=== PATIENT | male | born 1970 | race Caucasian/White ===

== ENCOUNTER 2017-02-02 08:30 | Emergency (ER) | payer SELFPAY ==
[2017-02-02] MEDS ORDERED: Ondansetron HCl/PF 4 MG/2 ML Vial ONE (08:37)
[2017-02-02 09:04] LABS: #Basophils 0.1 thou/uL (0.0-0.2); #Eosinphils 0.2 thou/uL (0.0-0.7); #Lymphocytes 2.3 thou/uL (1.20-3.40); #Monocytes 0.8 thou/uL (0.11-0.59); #Neutrophils 8.1 thou/uL (1.40-6.50); %Basophils 0.5 % (0.0-1.0); %Eosinophils 1.4 % (0.0-10.0); %Lymphocytes 19.9 % (21.0-51.0); %Monocytes 6.8 % (0.0-10.0); Hematocrit 41.6 % (42.0-52.0); Mean Platelet Volume 7.5 fL (7.4-10.4); Red Blood Cell (RBC) Count 4.18 mill/uL (4.70-6.10); White Blood Cell (WBC) Count 11.3 thou/uL (4.8-10.8)
[2017-02-02 09:26] LABS: ALT (SGPT) 18 U/L (8-55); AST (SGOT) 20 U/L (5-34); Alkaline Phosphatase 64 U/L (40-150); Anion Gap 14 mmol/L (10-20); BUN (Urea Nitrogen) 12 mg/dL (8.9-20.6); Bilirubin, Total 0.5 mg/dL (0.2-1.2); Calc. Creatinine Clearance 0 mL/min (70-130); Carbon Dioxide 24 mmol/L (22-29); Chloride 103 mmol/L (98-107); Estimated GFR-MDRD Greater than 90; Globulin 2.7 g/dL (2.4-3.5); Protein, Total 6.8 g/dL (6.0-8.3)
[2017-02-02] MEDS ORDERED: Potassium Chloride 20 MEQ TAB ONE (10:54)
== END 2017-02-02 10:57 | disposition home or self-care (01) ==
LOC: ERS 08:30
DX: E10.649 Type 1 diabetes mellitus with hypoglycemia without coma (principal); F17.210 Nicotine dependence, cigarettes, uncomplicated; Z79.899 Other long term (current) drug therapy
CPT/HCPCS: 36415; 36416; 80053; 85025; 93005; 96374; J2405

== ENCOUNTER 2018-01-08 15:55 | Emergency (ER) | payer SELFPAY ==
[2018-01-08] MEDS ORDERED: diphenhydrAMINE 50 MG/ML VIAL ONE (17:12)
== END 2018-01-08 17:51 | disposition home or self-care (01) ==
LOC: ERS 15:55
DX: T63.441A Toxic effect of venom of bees, accidental (unintentional), initial encounter (principal); F17.210 Nicotine dependence, cigarettes, uncomplicated; E10.9 Type 1 diabetes mellitus without complications; Z79.899 Other long term (current) drug therapy
CPT/HCPCS: 96374; J1200

== ENCOUNTER 2018-05-31 09:08 | Inpatient (IN) | payer SELFPAY ==
[2018-05-31 09:41] LABS: #Eosinphils 0.1 thou/uL (0.0-0.7); #Lymphocytes 0.9 thou/uL (1.20-3.40); #Monocytes 0.3 thou/uL (0.11-0.59); #Neutrophils 5.4 thou/uL (1.40-6.50); %Basophils 0.5 % (0.0-1.0); %Eosinophils 1.3 % (0.0-10.0); %Lymphocytes 13.9 % (21.0-51.0); %Monocytes 4.5 % (0.0-10.0); %Neutrophils 79.8 % (42.0-75.0); Hemoglobin 14.1 g/dL (14.0-18.0); Mean Corpuscular HGB CONC 32.1 g/dL (32.0-36.0); Mean Corpuscular Hemoglobin 32.9 pg (27.0-31.0); Mean Platelet Volume 8.4 fL (7.4-10.4); Platelet Count 131 thou/uL (130-400); RBC Distribution Width 12.9 % (11.5-14.5); Red Blood Cell (RBC) Count 4.29 mill/uL (4.70-6.10); White Blood Cell (WBC) Count 6.7 thou/uL (4.8-10.8)
[2018-05-31 09:47] LABS: Base Excess-Venous -7.7 mmol/L (-2.0 to 3.0); Bicarbonate (HCO3v) 18.1 mmol/L (22.0-28.0); CO2 Tension (PvCO2) 37.3 mmHg (40.0-50.0); Calcium, Ionized 1.04 mmol/L (See Comments:); Chloride 102 mmol/L (98-107); O2 Tension (PvO2) 36.3 mmHg (35.0-45.0); Potassium 5.7 mmol/L (3.5-5.1); Sodium 132 mmol/L (138-145); T. Carbon Dioxide 19.2 mmol/L (22.0-28.0); pH (Venous) 7.294 (7.320-7.430); vO2 Saturation-calc 63.6 % (60.0-85.0)
--- NOTE | 2018-05-31 09:55 | RAD ---
CHEST 1 VIEW: Date: 05/31/18 HISTORY: Chest pain. COMPARISON: Chest radiograph from 2013. FINDINGS: Lungs are clear. No pneumothorax or effusion. Cardiac silhouette and mediastinal contours within norm al limits. No acute osseous abnormality. There is a dysmorphic appearance to the left humeral head with evidence for fracture and articular fernandez rface remodeling. There is also flattening of the right humeral head. IMPRESSION: No acute intrathoracic abnormality. POS: JEWEL
[2018-05-31 10:06] LABS: ALT (SGPT) 33 U/L (8-55); AST (SGOT) 31 U/L (5-34); Alkaline Phosphatase 92 U/L (40-150); Anion Gap 19 mmol/L (10-20); BUN (Urea Nitrogen) 22 mg/dL (8.9-20.6); Bilirubin, Total 1.4 mg/dL (0.2-1.2); Calc. Creatinine Clearance 0 mL/min (70-130); Calcium 8.9 mg/dL (7.8-10.44); Carbon Dioxide 18 mmol/L (22-29); Chloride 100 mmol/L (98-107); Estimated GFR-MDRD 64; Globulin 2.5 g/dL (2.4-3.5); Magnesium 1.4 mg/dL (1.6-2.6); Phosphorus 2.7 mg/dL (2.3-4.7); Potassium 5.8 mmol/L (3.5-5.1); Protein, Total 6.5 g/dL (6.0-8.3); Sodium 131 mmol/L (136-145)
[2018-05-31 10:08] LABS: Glucose 589 mg/dL (70-105)
[2018-05-31 10:12] LABS: Bilirubin Negative (Negative); Blood, Urine Negative (Negative); Clarity CLEAR (Clear); Glucose, Urine (Dipstick) >=1000 mg/dL (Negative); Leukocyte Negative (Negative); Nitrite Negative (Negative); Protein, Urine (Dipstick) Negative (Neg-Trace); Specific Gravity, Urine 1.029 (1.002-1.036); Urobilinogen 0.2 mg/dL (0.2-1.0); pH, Urine 5.5 (5.0-9.0)
[2018-05-31] MEDS ORDERED: Insulin Regular 300 UNITS/3 ML VIAL ONE (10:33)
[2018-05-31] MEDS ORDERED: Magnesium 2 GM/50 ML BAG (IN WATER) ONE (10:33)
[2018-05-31] MEDS ORDERED: HumuLIN 70/30 (300 UNITS/3 ML VIAL) SC SCH (11:15)
[2018-05-31] MEDS ORDERED: Aspirin Chewable 81 MG TAB ONE (11:17)
[2018-05-31 12:06] LABS: Anion Gap 16 mmol/L (10-20); BUN (Urea Nitrogen) 21 mg/dL (8.9-20.6); Calc. Creatinine Clearance 77 mL/min (70-130); Calcium 8.2 mg/dL (7.8-10.44); Carbon Dioxide 16 mmol/L (22-29); Chloride 105 mmol/L (98-107); Estimated GFR-MDRD 77; Glucose 424 mg/dL (70-105); Potassium 4.9 mmol/L (3.5-5.1); Sodium 132 mmol/L (136-145)
[2018-05-31] MEDS ORDERED: HumaLOG 300 UNITS/3 ML VIAL SC PRN ×2 (12:59)
[2018-05-31] MEDS ORDERED: Guaifenesin DM 100-10/5 ML UDCUP PO PRN (12:59)
[2018-05-31] MEDS ORDERED: Dextrose 50% Abboject 50 ML SYRINGE SLOW IVP PRN (12:59)
[2018-05-31] MEDS ORDERED: Acetaminophen 325 MG TAB PO PRN (12:59)
[2018-05-31] MEDS ORDERED: HYDROcodone/Acetaminophen 5/325 mg Tablet PO PRN (12:59)
[2018-05-31] MEDS ORDERED: Dextrose 5% in Water 1,000 ML IV PRN (12:59)
[2018-05-31] MEDS ORDERED: Senokot S 8.6-50 MG TAB PO PRN (12:59)
[2018-05-31 13:26] LABS: Hemoglobin A1c 8.8 % (4.0-6.0)
[2018-05-31 13:44] VITALS: BMI 19.9
[2018-05-31] MEDS: Sodium Chloride 0.9% 1,000 ML IV SCH (14:52)
--- NOTE | 2018-05-31 15:57 | HP ---
REASON FOR ADMISSION: Metabolic acidosis, diabetes mellitus type 1 with severe hyperglycemia. HISTORY OF PRESENTING ILLNESS: The patient gives history of running out of his insulin last night. He checked his fingerstick glucose. It was more than 500. He tried to call his primary care physician this morning. He has ran out of all his refills as well. He did not hear back from his primary care physician and the patient made it to the emergency room. No complaints of chest pain, palpitation , PND, or orthopnea. No complaints of urinary frequency or urgency. No complaints of cough or expectoration. No complaints of myalgias or flu-like illness at present. PAST MEDICAL AND SURGICAL HISTORY: History of diabetes mellitus type 1, which was diagnosed in February 2008; hernia repair. CURRENT MEDICATIONS: Takes: 1. Levemir anywhere from 15 to 20 units subcutaneous q.p.m. 2. NovoLog sliding scale three times daily before meals. 3. Cyclobenzaprine 5 mg q.8 hourly p.r.n. for muscle spasms. 4. Lisinopril 10 mg p.o. daily. ALLERGIES: NO KNOWN DRUG ALLERGIES. PERSONAL HISTORY: Does not abuse alcohol or drugs. Smokes half pack a day. Ambulates by himself. 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 FAMILY HISTORY: Mother was killed in her 40s. Father of massive CO at the age of 51 years. CODE STATUS: Full. Power of commercial real estate attorney is his son. REVIEW OF SYSTEMS: CONSTITUTIONAL: Negative for weight loss or gain, ability to conduct usual activities. SKIN: Negative for rash, itching. EYES: Negative for double vision, pain. ENT/MOUTH: Negative for nose bleeding, neck stiffness, pain, tenderness. CARDIOVASCULAR: Negative for palpitations, dyspnea on exertion, orthopnea. RESPIRATORY: Negative for shortness of breath, wheezing, cough, hemoptysis, fever or night sweats. GASTROINTESTINAL: Negative for poor appetite, abdominal pain, heartburn, nausea , vomiting, constipation, or diarrhea. GENITOURINARY: Negative for urgency, frequency, dysuria, nocturia. MUSCULOSKELETAL: Negative for pain, swelling. NEUROLOGIC/PSYCHIATRIC: Negative for anxiety, depression. ALLERGY/IMMUNOLOGIC: Negative for skin rash, bleeding tendency. PHYSICAL EXAMINATION: GENERAL: The patient is a 47-year-old male, who is currently not in any acute distress. VITAL SIGNS: Blood pressure 108/56, pulse 108 per minute, respiratory rate 16 per minute, temperature 98.1 degrees Fahrenheit, and saturating 98% on room air. NECK: Supple. No elevated JVD. HEENT: Eyes; extraocular muscles intact. Pupils are reacting to light. Oral cavity, mucous membranes are dry. No exudates or congestion. CARDIOVASCULAR: S1 and S2 heard. Regular rhythm. Tachycardic. RESPIRATORY: Air entry 1+ bilateral. No rales or rhonchi. ABDOMEN: Soft. Bowel sounds heard. No tenderness, rigidity, or guarding. EXTREMITIES: No peripheral edema or calf tenderness. VASCULAR: Peripheral pulses 1+ bilateral. No ischemic ulcerations or gangrene. CENTRAL NERVOUS SYSTEM: No gross focal deficits noted. The patient is alert, awake, and oriented well. PSYCHIATRIC: The patient's mood is euthymic. No hallucinations or delusions. LABORATORY DATA: White count of 6, H and H of 14 and 43, platelet count 131, MCV is 102 with 79% neutrophils. Venous blood gas done shows a pH of 7.29. Bicarb was 18 on the blood gas. Serum bicarb is 16, serum sugar is 424, BUN 21, creatinine 1.0. HbA1c 8.8. UA shows no evidence of infection, but urine ketones are 40 mg/dL. Beta-hydroxybutyrate is 4.52 mmol/L. EKG sinus tach at 106 beats per minute. Chest x-ray done shows no acute cardiopulmonary abnormality. CLINICAL IMPRESSION AND PLAN: The patient will be admitted to medical floor for metabolic acidosis, moderate dehydration, severe hyperglycemia due to type 1 diabetes due to noncompliance with insulin. He was given 10 units of regular insulin and a total of 15 units of Humulin 70/30 in the ER. The patient will be placed back on his home dose of Levemir 15 units subcutaneous twice daily and aggressive Humalog sliding scale here. We will hydrate him with normal saline at 100 mL/h. His electrolytes will be closely monitored. We will obtain a metabolic panel this evening. If needed, potassium will be replaced. We will also continue his lisinopril as before. The patient's HbA1c is 8.8 with uncontrolled diabetes. Job ID: [id number] [facility]
[2018-05-31] MEDS ORDERED: Insulin Glargine 15 UNITS in Pre-Filled Syringe 1 EACH SC SCH (21:00)
[2018-06-01] MEDS: Sodium Chloride 0.9% 1,000 ML IV SCH (02:00)
[2018-06-01 05:44] LABS: #Eosinphils 0.3 thou/uL (0.0-0.7); #Monocytes 0.6 thou/uL (0.11-0.59); #Neutrophils 2.7 thou/uL (1.40-6.50); %Basophils 0.4 % (0.0-1.0); %Eosinophils 4.4 % (0.0-10.0); %Lymphocytes 45.2 % (21.0-51.0); %Monocytes 8.3 % (0.0-10.0); %Neutrophils 41.6 % (42.0-75.0); Hemoglobin 12.3 g/dL (14.0-18.0); Mean Corpuscular HGB CONC 32.8 g/dL (32.0-36.0); Mean Corpuscular Hemoglobin 33.3 pg (27.0-31.0); Mean Platelet Volume 7.9 fL (7.4-10.4); Platelet Count 134 thou/uL (130-400); RBC Distribution Width 12.9 % (11.5-14.5); White Blood Cell (WBC) Count 6.6 thou/uL (4.8-10.8)
[2018-06-01 06:11] LABS: Anion Gap 10 mmol/L (10-20); BUN (Urea Nitrogen) 13 mg/dL (8.9-20.6); Calc. Creatinine Clearance 107 mL/min (70-130); Calcium 8.4 mg/dL (7.8-10.44); Carbon Dioxide 24 mmol/L (22-29); Chloride 109 mmol/L (98-107); Estimated GFR-MDRD Greater than 90; Potassium 4.1 mmol/L (3.5-5.1); Sodium 139 mmol/L (136-145)
[2018-06-01 06:15] LABS: Glucose 59 mg/dL (70-105)
[2018-06-01 07:51] VITALS: BP 110/68; TEMP 97.6
[2018-06-01] MEDS ORDERED: Enoxaparin Sodium 40 MG/0.4 ML SYRINGE SC SCH (09:00)
[2018-06-01] MEDS ORDERED: Insulin Glargine 10 UNITS in Pre-Filled Syringe 1 EACH SC SCH (09:00)
[2018-06-01] MEDS ORDERED: Lisinopril 5 MG TAB PO SCH (09:00)
--- NOTE | 2018-06-01 11:50 | PDOC.PN ---
- Subjective Encounter Start Date: 06/01/18 Encounter Start Time: 09:00 Subjective: no sob or palp -: is amb in hallway, feels better -: eating well - Objective Resuscitation Status - Order Detail: 05/31/18 12:56 Resuscitation Status Routine Resuscitation Status: FULL: Full Resuscitation MAR Reviewed: Yes Vital Signs & Weight: Vital Signs (12 hours) Temp Pulse Resp BP BP BP Pulse Ox 06/01/18 08:51 63 110/68 06/01/18 07:50 97.6 F 63 14 110/68 96 06/01/18 04:00 97.9 F 59 L 16 96/56 L 94 L 06/01/18 00:00 97.7 F 64 16 99/66 95 Weight Weight 134 lb 15.825 oz I&O: 05/31/18 06/01/18 06/02/18 06:59 06:59 06:59 Intake Total 2160 Balance 2160 Result Diagrams: 06/01/18 04:31 06/01/18 04:31 Additional Labs: Accuchecks 06/01/18 06/01/18 05/31/18 05:27 05:03 20:41 POC Glucose 100 58 L* 154 H 05/31/18 05/31/18 05/31/18 15:45 15:00 12:44 POC Glucose 286 H 323 H 334 H Phys Exam - Physical Examination HEENT: PERRLA, moist MMs Neck: no JVD, supple Respiratory: no wheezing, no rales Cardiovascular: RRR, no significant murmur Gastrointestinal: soft, non-tender, positive bowel sounds Musculoskeletal: no edema, pulses present Neurological: non-focal, moves all 4 limbs Psychiatric: normal affect, A&O x 3 Dx/Plan (1) Hyperglycemia due to type 1 diabetes mellitus Code(s): E10.65 - TYPE 1 DIABETES MELLITUS WITH HYPERGLYCEMIA Status: Acute (2) HTN (hypertension) Code(s): I10 - ESSENTIAL (PRIMARY) HYPERTENSION Status: Chronic Qualifiers: Hypertension type: essential hypertension Qualified Code(s): I10 - Essential (primary) hypertension (3) Metabolic acidosis Code(s): E87.2 - ACIDOSIS Status: Resolved (4) Dehydration, moderate Code(s): E86.0 - DEHYDRATION Status: Resolved - Plan pt has improved dramatically and wants to go home -: met acidosis is resolved -: he is tolerating oral diet -: dc pt home -: prescriptions given for home insulins * .
--- NOTE | 2018-06-02 11:20 | DIS ---
DATE OF ADMISSION: 05/31/2018 DATE OF DISCHARGE: 06/01/2018 DISCHARGE DISPOSITION: To home. PRIMARY DISCHARGE DIAGNOSES: Diabetes mellitus, type 1, which was uncontrolled with severe hyperglycemia due to noncompliance with insulin. Metabolic acidosis, secondary to above. Moderate dehydration, secondary to above. PROCEDURES DONE DURING HOSPITALIZATION: The patient had chest x-ray done on the day of admission, which showed no acute intrathoracic abnormality. H and H; 12 and 37, platelet count 134, MCV 101 with 41% neutrophils. Venous blood gas done on the day of admission showed a pH 7.29. Bicarb on the blood gas, 18. Discharge bicarb 24. Discharge BUN and creatinine; 13 and 0.7. HbA1c 8.8. Admitting serum sugar 589. Admitting serum bicarb 18. Beta-hydroxybutyrate 4.52. DISCHARGE MEDICATIONS: 1. Humalog sliding scale before meals. 2. Levemir 15 units subcu twice daily. 3. Lisinopril 10 mg daily. ALLERGIES: NO KNOWN DRUG ALLERGIES. DISCHARGE PLAN: The patient is to check fingerstick glucose twice daily, to record and follow up with primary care physician in 1 week. BRIEF COURSE DURING HOSPITALIZATION: The patient initially came to ER after running out of insulin a day prior. The patient did not have any more refills and could not get a prescription from his primary care physician. On arrival, he was found to have serum sugars of more than 500 and was dehydrated with metabolic acidosis as well. The patient is a type 1 diabetic. He was given 15 units of 70/30 insulin along with 10 units of regular insulin in the ER and was admitted to medical floor. The patient was aggressively hydrated during his stay here. His metabolic acidosis and dehydration have completely resolved. Prior to discharge, he is ambulating well. His fingerstick glucose is trending between 59 and 154 prior to discharge. He has been advised to check fingerstick glucose twice daily and record for 10 days to follow up with primary care physician. All prescriptions have been given for his insulin. He was counseled with regard to medication compliance. Please see a [id number] documentation for the day of discharge on [email or web address]. Please note the patient dramatically improved during his stay. He was initially placed as inpatient, but due to his complete recovery and patient wanting to go home, he is being discharged. Job ID: [id number] [facility]
== END 2018-06-01 10:02 | disposition home or self-care (01) | DRG 639 ==
LOC: ERS 09:08 → T4-A 11:15
PROVIDERS: ADMIT Internal Medicine; ATTEND Internal Medicine
DX: E10.65 Type 1 diabetes mellitus with hyperglycemia (principal); E86.0 Dehydration; I10 Essential (primary) hypertension; F17.210 Nicotine dependence, cigarettes, uncomplicated; Z98.890 Other specified postprocedural states; Z91.14 Patient's other noncompliance with medication regimen
CPT/HCPCS: 36415; 36416; 71045; 80048; 80053; 81003; 82010; 82330; 82803; 83036; 83690; 83735; 84100; 84484; 85025; 93005; 96361; 96365; 96375; 99406; J1650; J1815; J1825; J3475

== ENCOUNTER 2023-01-06 16:44 | Emergency (ER) | payer OTHER, SELFPAY ==
[2023-01-06] MEDS ORDERED: HYDROcodone/Acetaminophen 5/325 mg Tablet ONE (18:44)
== END 2023-01-06 19:24 | disposition home or self-care (01) ==
LOC: ERS 16:44
DX: S82.102A Unspecified fracture of upper end of left tibia, initial encounter for closed fracture (principal); E10.9 Type 1 diabetes mellitus without complications; F17.290 Nicotine dependence, other tobacco product, uncomplicated; Z79.82 Long term (current) use of aspirin; Z79.899 Other long term (current) drug therapy; V28.09XA Other motorcycle driver injured in noncollision transport accident in nontraffic accident, initial encounter